=== PATIENT | female | born 1935 | race Caucasian/White ===

== ENCOUNTER 2017-11-25 05:44 | Day surgery (SDC) | payer OTHER ==
[~2017-11-25] VITALS: Ht 175.3 cm; Wt 60.3 kg
--- NOTE | ~2017-11-25 | O ---
[facility] [place] [address] OPERATIVE REPORT Name: PRAVIN MCNULTY Room #: DEP [facility].#: [id number] Admission: 11/25/17 Attend Phys: Dave Lane MD Discharge: 11/25/17 Date of : 31 Report #: [id number] THIS REPORT FOR: //name// CC: Rogelio Lane DATE OF SERVICE: 11/25/2017 [employer]OVEL [employer]LE ASSEMBLER: None. PREOPERATIVE DIAGNOSIS: Unilateral left lower lid entropion. POSTOPERATIVE DIAGNOSIS: Unilateral left lower lid entropion. OPERATION PERFORMED: Unilateral left lower lid entropion repair. ANESTHESIA: Local with IV sedation. COMPLICATIONS: None. INDICATIONS FOR PROCEDURE: This patient has unilateral lower lid entropion with chronic irritation and discharge. The current procedure is being undertaken in order to improve the patient's level of comfort and visual function. Informed consent was obtained to include but not limited to the loss of vision, bleeding, infection, scarring, failure to improve the problem and need for further surgery. DESCRIPTION OF OPERATION: The patient was taken to the operating room, where 2% Xylocaine with epinephrine mixed with equal parts of 0.75% Marcaine with Wydase was administered transcutaneously and transconjunctivally to the lower lid and lateral canthal area. The patient was then prepped and draped in the usual sterile fashion. A Chrissy clamp was used to clamp the lateral canthus, following which a sharp canthotomy and cantholysis were performed. Hemostasis was achieved with a monopolar cautery, as it was throughout the case. A tarsal strip was prepared laterally, removing the lash-bearing portion of the redundant lid margin and the redundant tarsal plate. A transconjunctival dissection was then undertaken just inferior to the lower border of the tarsal plate. The lower lid retractors were disinserted from the inferior border of the tarsal plate. The lower lid retractors were then advanced and reattached to the anterior surface of the tarsal plate with mattress 5-0 chromic sutures passed transconjunctivally and secured in the infraciliary margin. The tarsal strip was then secured laterally with 2 interrupted 5-0 Prolene sutures. The subcutaneous structures and the skin were then closed with multiple interrupted [address] [address] OPERATIVE REPORT Name: PRAVIN MCNULTY Room #: DEP [facility]#: [id number] Admission: 11/25/17 Attend Phys: Dave Lane MD Discharge: 11/25/17 Date of : 31 Report #: [id number] 6-0 plain gut sutures so the lateral canthal angle was sharply reformed. The wound was then cleaned and dressed with ophthalmic antibiotic ointment. The patient was then transported to the recovery area having tolerated the procedure well with no anesthetic or operative complications being noted. <ELECTRONICALLY SIGNED> By: Dave Lane MD 12/06/17 [id number] MD /duncan
[~2017-11-25 05:44] MED LIST: APAP W/CODEINE1 TA2 PO; CALCIUM 600 +1 EAC1 PO; CENTRUM SILVER1 EAC4 PO; ELIQUIS2.5 MG PO; ESTRADIOL 1 MG T1 M1 PO; FLAGYL500 M1 PO; FLORINEF ACETA0.1 MG PO; FUROSEMIDE 20 M20 M1 PO; GLUCOSAMINE &1 EACH PO; IMURAN 50MG TAB50 M1 PO; KLOR-CON 1010 MEQ PO; LIPITOR10 MG PO; LOPERAMIDE 2 MG2 M1 PO; NOVAFERRUM 5050 MG PO; OXYBUTYNIN 5 MG5 M2 PO; PACERONE 200 M200 M1 PO; PREDNISONE 5 MG5 M1 PO; RANITIDINE 150150 M1 PO; VITAMIN D32000 UNIT PO
[2017-11-25 10:40] LABS: CALCIUM 8.8 mg/dL (8.5-10.1); CREATININE 0.8 mg/dL (0.6-1.0); POTASSIUM 3.6 mmol/L (3.5-5.1)
[2017-11-25 10:45] VITALS: BP 185/76
== END 2017-11-25 14:00 | disposition home or self-care (01) ==
LOC: TBA 05:44 → OR 05:44
PROVIDERS: Ophthalmology
DX: H02.005 Unspecified entropion of left lower eyelid (principal); I48.91 Unspecified atrial fibrillation; E78.00 Pure hypercholesterolemia, unspecified; K21.9 Gastro-esophageal reflux disease without esophagitis; K50.90 Crohn's disease, unspecified, without complications; Z90.49 Acquired absence of other specified parts of digestive tract; Z90.710 Acquired absence of both cervix and uterus; Z86.73 Personal history of transient ischemic attack (TIA), and cerebral infarction without residual deficits; Z98.890 Other specified postprocedural states; Z88.0 Allergy status to penicillin; Z88.2 Allergy status to sulfonamides; Z79.899 Other long term (current) drug therapy
CPT/HCPCS: 50010; 50101; 50386; 50398; 51636; 56527; 56531; 62110; 62850; 70005